=== PATIENT | female | born 1975 | race Caucasian/White ===

== ENCOUNTER 2021-11-10 01:56 | Inpatient (IN) | payer SELFPAY ==
[2021-11-10] VITALS (45 sets, daily range): BP systolic 124–190; BP diastolic 72–108; PULSE 61–90; RESP 7–29; TEMP 36.6–37.1; O2SAT 91–98; BMI 24.0
--- NOTE | 2021-11-10 01:30 | XRR_ITS ---
[facility] Final Radiology Report Call: [phone] assistance Online chat: [email or web address] Name: ELSA NUNES Age: 67Years F Date: 11/10/2021 SSN: -- : 10/24/1954 Study: XR CHEST 1 VIEW Requesting Physician: ULYSSES RIVERA Images: 1 Add?l Studies: Provided Clinical History: cp PROCEDURE INFORMATION: Exam: XR Chest Exam date and time: 11/10/2021 1:29 AM Age: 67 years old Clinical indication: Shortness of breath; Chest pressure; Prior surgery; Surgery type: Coronary stent; Patient HX: Chest pain with nausea and SOB. History of cad. ; Additional info: Cp TECHNIQUE: Imaging protocol: XR of the chest. Views: 1 view. COMPARISON: CR Shoulder 2+ views LEFT* [id number] 08/05/2018 2:34 PM FINDINGS: Lungs: Unremarkable. No consolidation. Pleural spaces: Unremarkable. No pleural effusion. No pneumothorax. Heart/Mediastinum: Unremarkable. No cardiomegaly. Bones/joints: Unremarkable. IMPRESSION: No acute findings. Thank you for allowing us to participate in the care of your patient. Dictated and Authenticated by: Esequiel Talley DO 11/10/2021 1:56 AM Central Time ([place] & [place]) MTDD
--- NOTE | 2021-11-10 01:58 | ED_ITS ---
HPI - Chest Pain General: Chief Complaint: Chest Pain Stated Complaint: CP Time Seen by Provider: 11/10/21 01:58 Source: patient and EMS Mode of arrival: EMS Limitations: no limitations History of Present Illness: 46-year-old female with a history of coronary disease had stents placed roughly 3 years ago states that she was setting down tonight at 11 PM started having chest pain that was substernal with some diaphoresis and dyspnea patient was given nitro and aspirin and is currently pain-free patient came in by [facility] helicopter and they called STEMI in route. Reviewing the EKG she does have some ST depression but no signs of STEMI on initial EKG here shows no signs of ST elevation as well. She is completely pain-free here. Associated symptoms: Deny abdominal pain, dyspnea, fever(s), nausea or vomiting Review of Systems Const: Denies: fever(s), chills, body aches or change in appetite Eyes: Denies: blurry vision or eye discomfort ENMT: Denies: throat pain or dental pain Card: Reports: chest pain Resp: Denies: dyspnea GI: Denies: abdominal pain, nausea, vomiting or diarrhea : Denies: dysuria Musc: Denies: neck pain or back pain Skin/Breast: Denies: rash Neuro: Denies: headache(s) Psych: Denies: depression Harshad/Lymph: Denies: easy bruising All/Imm: Denies: urticaria PFSH ED PFSH: Medical History CAD (coronary artery disease) Social History (Updated 11/10/21 @ 01:59 by Edna Lund MD) Smoking and tobacco status: current every day smoker Physical Exam Const: COMMON NORMALS: no acute distress, patient oriented x3 and healthy appearing HENMT: COMMON NORMALS: normocephalic and atraumatic HEAD & SCALP: normocephalic and atraumatic Eye: COMMON NORMALS: Equal, round and reactive pupils present and EOMs intact bilaterally PUPIL: Yes Equal, round and reactive pupils present Neck/C-Spine: COMMON NORMALS: full ROM and supple Chest: COMMONS NORMALS: normal inspection of the chest and normal palpation of entire chest wall Resp: COMMON NORMALS: normal respiratory effort, No retractions, No use of accessory muscles and clear to auscultation bilaterally AUSCULTATION: clear to auscultation bilaterally Cardio: COMMON NORMALS: regular rate, regular rhythm and No murmurs present (Cardio) RATE: regular rate RHYTHM: regular rhythm GI: COMMON NORMALS: Normal to inspection, nondistended, normoactive bowel sounds present, Soft to palpation, non-tender and no masses PALPATION: Yes Soft to palpation Extremity: COMMON NORMALS: normal to inspection and full ROM Neuro: COMMON NORMALS: patient oriented x3, moves all extremities and no focal motor deficits Psych: COMMON NORMALS: mental status grossly normal, Normal thought process present and cooperative THOUGHT PROCESS: Normal thought process present Skin: COMMON NORMALS: no rashes or lesions noted and no wounds GENERAL SKIN EXAM: no rashes or lesions noted Course Vital Signs: Vital signs: Vital Signs Temperature 98.1 F 11/10/21 02:19 Pulse Rate 70 11/10/21 02:37 Respiratory Rate 21 H 11/10/21 02:37 Blood Pressure 156/84 11/10/21 02:37 Pulse Oximetry 95 11/10/21 02:37 MDM - Chest Pain Medical Decision Making Patient presents for chest pain patient was seen here by the gymnastic coach EKG he re showed no signs of ST elevation and STEMI was called off patient is given Lovenox first troponin is normal speaking to gymnastic coach will admit at this time though for likely cath. Lab Data : 11/10/21 00:45 11/10/21 00:45 Laboratory Results WBC 11.4 10^3/uL (4.0-10.0) H 11/10/21 00:45 RBC 4.62 10^6/uL (4.1-5.3) 11/10/21 00:45 Hgb 12.1 g/dL (11.5-15.3) 11/10/21 00:45 Hct 39.4 % (37.0-47.0) 11/10/21 00:45 MCV 85.3 fl (81-99) 11/10/21 00:45 MCH 26.2 pg (28.0-34.0) L 11/10/21 00:45 MCHC 30.7 g/dL (30.0-36.0) 11/10/21 00:45 RDW 14.8 % (12.1-15.1) 11/10/21 00:45 Plt Count 220 10^3/cmm (130-400) 11/10/21 00:45 MPV 10.4 fL (7.4-10.4) 11/10/21 00:45 Neut % (Auto) 55.4 % 11/10/21 00:45 Lymph % (Auto) 36.9 % 11/10/21 00:45 [place] % (Auto) 5.5 % 11/10/21 00:45 Eos % (Auto) 1.5 % 11/10/21 00:45 Baso % (Auto) 0.5 % 11/10/21 00:45 Neut # (Auto) 6.29 10^3/uL (1.8-7.7) 11/10/21 00:45 Lymph # (Auto) 4.2 10^3/uL (0.8-4.8) 11/10/21 00:45 [place] # (Auto) 0.6 10^3/uL (0.2-0.9) 11/10/21 00:45 Eos # (Auto) 0.2 10^3/uL (0.0-0.8) 11/10/21 00:45 Baso # (Auto) 0.1 10^3/uL (0.0-0.1) 11/10/21 00:45 Nucleated RBC % (auto) 0 % 11/10/21 00:45 Nucleated RBCs # 0.0 /100WBC 11/10/21 00:45 Sodium 139 mmol/L (136-145) 11/10/21 00:45 Potassium 3.9 mmol/L (3.5-5.1) 11/10/21 00:45 Chloride 100 mmol/L (98-107) 11/10/21 00:45 Carbon Dioxide 23 mmol/L (22-29) 11/10/21 00:45 Anion Gap 19.9 (5-19) H 11/10/21 00:45 BUN 9 mg/dL (6-20) 11/10/21 00:45 Creatinine 0.7 mg/dL (0.5-0.9) 11/10/21 00:45 GFR Calculation 90.1 mL/min (90-130) 11/10/21 00:45 Glucose 117 mg/dL (65-115) H 11/10/21 00:45 Calculated Osmolality 288 mOsm/kg (285-295) 11/10/21 00:45 Calcium 9.6 mg/dL (8.5-10.5) 11/10/21 00:45 Total Bilirubin 0.2 mg/dL (0.15-1.2) 11/10/21 00:45 AST 14 U/L (0-32) 11/10/21 00:45 ALT 7 U/L (0-33) 11/10/21 00:45 Alkaline Phosphatase 44 IU/L (35-105) 11/10/21 00:45 Troponin T Baseline 10 ng/L (0-10) 11/10/21 00:45 Total Protein 7.1 g/dL (6.6-8.7) 11/10/21 00:45 Albumin 4.6 g/dL (3.5-5.2) 11/10/21 00:45 Globulin 2.5 g/dL (1.3-4.6) 11/10/21 00:45 EKG Data EKG 1: I personally reviewed and interpreted this EKG as follows: EKG interpretation date: 11/10/21 EKG interpretation time: 00:33 Interpretation: nsr hr [address] or t wave abnormalities qrs 106 qtc 395 Discharge Plan Discharge Patient Disposition: Admitted As Inpatient Clinical Impression: Chest pain Coding Level of Care Code ED Prenatal Genetic Counselor for Fedeg Fwd Exam Comprehensive
--- NOTE | 2021-11-10 02:09 | ECG_ITS ---
[facility] Test Date: 2021-11-10 Pat Name: FESTUS ZAPIEN Department: Room: Gender: Female Order Department Supervisor: : 1975 Requested By: Edna Lund Order Number: [id number] Risa MD: Namrata Ozuna M.D. Measurements Intervals [place] Rate: 73 P: 65 VT: 174 QRS: 45 QRSD: 90 T: -34 QT: 410 QTc: 452 Interpretive Statements SINUS RHYTHM LEFT VENTRICULAR HYPERTROPHY AND ST-T CHANGE [VOLTAGE CRITERIA PLUS ST/T ABNORMALITY] INTERPRETATION BASED ON A DEFAULT AGE OF 40 YEARS No previous ECG available for comparison Electronically Signed On 11-11-2021 6:01:00 PRIVATE BRANCH EXCHANGE REPAIRER by Namrata Ozuna M.D. [id number]
[2021-11-10] MEDS: enoxaparin 80 mg/0.8 mL Syringe 70 MG SUBCUT (02:20)
[2021-11-10] MEDS: clopidogrel 300 mg Tablet 600 MG PO (02:22)
[2021-11-10 02:41] LABS: Alanine Aminotransferase 7 U/L (0-33); Albumin Level 4.6 g/dL (3.5-5.2); Alkaline Phosphatase 44 IU/L (35-105); Anion Gap 19.9 (5-19); Aspartate Amino Transferase 14 U/L (0-32); Blood Urea Nitrogen 9 mg/dL (6-20); Calcium 9.6 mg/dL (8.5-10.5); Carbon Dioxide 23 mmol/L (22-29); Chloride 100 mmol/L (98-107); Globulin 2.5 g/dL (1.3-4.6); Glomerular Filtration Rate 90.1 mL/min (90-130); Glucose 117 mg/dL (65-115); Osmolality Calculated 288 mOsm/kg (285-295); Potassium 3.9 mmol/L (3.5-5.1); Sodium 139 mmol/L (136-145); Total Bilirubin 0.2 mg/dL (0.15-1.2); Total Protein 7.1 g/dL (6.6-8.7); Troponin(5th) Baseline 10 ng/L (0-10)
[2021-11-10 02:43] LABS: Basophils # 0.1 10^3/uL (0.0-0.1); Basophils % 0.5 %; Eosinophils # 0.2 10^3/uL (0.0-0.8); Eosinophils % 1.5 %; Hematocrit 39.4 % (37.0-47.0); Hemoglobin 12.1 g/dL (11.5-15.3); Lymphocytes # 4.2 10^3/uL (0.8-4.8); Lymphocytes % 36.9 %; Mean Corpuscular HGB Conc 30.7 g/dL (30.0-36.0); Mean Corpuscular Hemoglobin 26.2 pg (28.0-34.0); Mean Corpuscular Volume 85.3 fl (81-99); Mean Platelet Volume 10.4 fL (7.4-10.4); Monocytes # 0.6 10^3/uL (0.2-0.9); Monocytes % 5.5 %; Neutrophils # 6.29 10^3/uL (1.8-7.7); Neutrophils % 55.4 %; Nucleated Red Blood Cells % 0 %; Platelet Count 220 10^3/cmm (130-400); Red Blood Count 4.62 10^6/uL (4.1-5.3); Red Cell Distribution Width 14.8 % (12.1-15.1); White Blood Count 11.4 10^3/uL (4.0-10.0)
--- NOTE | 2021-11-10 04:09 | ECG_ITS ---
[facility] Test Date: 2021-11-10 Pat Name: FESTUS ZAPIEN Department: Room: 108 Gender: Female Screw Machine Set Up Operator: : 1975 Requested By: Edna Lund Order Number: [id number] Risa MD: Namrata Ozuna M.D. Measurements Intervals [place] Rate: 65 P: 66 DC: 170 QRS: 63 QRSD: 85 T: 58 QT: 419 QTc: 438 Interpretive Statements SINUS RHYTHM POSSIBLE LEFT ATRIAL ENLARGEMENT [-0.1mV P-WAVE IN V1/V2] LEFT VENTRICULAR HYPERTROPHY AND ST-T CHANGE [VOLTAGE CRITERIA PLUS ST/T ABNORMALITY] Compared to ECG 11/10/2021 01:35:26 No significant changes Electronically Signed On 11-11-2021 6:08:27 LAP WINDER by Namrata Ozuna M.D. [id number]
--- NOTE | 2021-11-10 04:28 | PC.NURSE ---
Received Pt from ED to room 108. Pt A&O x4, Resp even and non-labored no distress noted. Pt had no c/o pain or discomfort at the present time. IV patent no redness or swelling noted. Pt had no c/o chest pain or SOB at the present time. No Needs voiced at the present time. Call light in reach. Will continue to monitor.
[2021-11-10] MEDS: nitroglycerin 1 gm/inch oint Pkt 1 INCH TOPICAL ×4 (05:05→22:22)
--- NOTE | 2021-11-10 05:10 | USCV_ITS ---
FESTUS ZAPIEN Age: 46 Gender: F : 1975 Exam Date: 11/10/2021 06:25 Ordering Phys: Jenelle Valdivia MD Technologist: ISIDORO [place] [facility] [place]stemi BP: 151 / 90 HR: 72 Rhythm: Sinus Technical Quality: Adequate MEASUREMENTS (Male / Female) Normal Values 2D ECHO LV Diastolic Diameter PLAX 4.4 cm 4.2 - 5.9 / 3.9 - 5.3 cm LV Systolic Diameter PLAX 2.7 cm IVS Diastolic Thickness 1.7 cm 0.6 - 1.0 / 0.6 - 0.9 cm IVS Systolic Thickness 2.3 cm LVPW Diastolic Thickness 1.4 cm 0.6 - 1.0 / 0.6 - 0.9 cm LVPW Systolic Thickness 1.7 cm LVOT Diameter 2.0 cm LV Ejection Fraction 2D Teich 67.6 % LV Ejection Fraction MOD 2C 55.0 % LV Ejection Fraction 2C AL 56.6 % LA Diameter 3.0 cm LA Width 3.1 cm LA Height 3.9 cm RA Width 3.3 cm RA Height 3.7 cm Aorta at Sinotubular Diameter 1.6 cm M-MODE Aortic Annulus Diameter 2.2 cm LA Ao Ratio MM 1.3 MV E Point Septal Separation 0.4 cm DOPPLER AV Peak Velocity 138.7 cm/s LVOT Peak Velocity 81.0 cm/s AV Area Cont Eq vti 1.9 cm squared AV Area Cont Eq pk 1.9 cm squared MV Peak Velocity 100.0 cm/s MV Area PHT 3.0 cm squared Mitral E to A Ratio 0.8 MV E' Velocity 51.5 cm/s Mitral E to MV E' Ratio 9.8 Mitral E to LV E' Lateral Ratio 9.8 Mitral E to LV E' Septal Ratio 9.8 TR Peak Velocity 146.9 cm/s TR Peak Gradient 8.6 mmHg TR Mean Velocity 143.4 cm/s TR Mean Gradient 9.5 mmHg TR Velocity Time Integral 50.2 cm Right Atrial Pressure 3.0 mmHg Pulmonary Artery Systolic Pressu 11.6 mmHg PV Peak Velocity 98.0 cm/s RV Acceleration Time 0.1 s RV Ejection Time 0.3 s RV AcT/ET 0.4 FINDINGS Left Ventricle Normal left ventricular size. LV systolic function is normal with EF 55 to 60%. No regional wall motion abnormalities are seen. Grade 1 diastolic dysfunction. Right Ventricle The right ventricle is normal in size and function. Right Atrium The right atrium is normal in size. Left Atrium The left atrium is normal in size. Mitral Valve Structurally normal mitral valve without significant stenosis or prolapse. There is trace mitral regurgitation. Aortic Valve Structurally normal aortic valve without significant sclerosis or stenosis. There is no aortic regurgitation. Tricuspid Valve Structurally normal tricuspid valve without significant stenosis or regurgitation. Insufficient TR jet to calculate RVSP. Pulmonic Valve Structurally normal pulmonic valve without significant stenosis. There is no pulmonic regurgitation. Pericardium Normal pericardium without effusion. Aorta Normal ascending aorta dimension. CONCLUSIONS LV systolic function is normal with EF 55 to 60%. Grade 1 diastolic dysfunction. Trace mitral regurgitation. No comparison studies are available. Galdino Carreno MD (Electronically Signed) Final Date: 10 November 2021 11:44 S
--- NOTE | 2021-11-10 05:15 | XR_ITS ---
WS: [id number] Portable AP upright chest, 11/10/2021, 0526 hours Clinical Data: chest pain Comparison: Portable chest, 11/10/2021, 0139 hours. Findings: No nodules, masses or effusions are seen. The heart is normal. The pulmonary vascularity is not increased. No pneumonia or pneumothorax is seen. Monitor leads are on the chest wall. XR/XR chest 1V portable [id number] Impression: Negative chest.
--- NOTE | 2021-11-10 05:16 | PM.HP ---
Providers/Chief Complaint Admitting Physician: Jenelle Valdivia MD Chief Complaint: CP History of Present Illness FESTUS ZAPIEN is a 46 year old female with a past medical history of coronary artery disease who was brought into the ER initially as a STEMI code after presenting with chest pain that started at 11 PM overnight. Chest pain was described as 9 out of 10, substernal, associated with diaphoresis and dyspnea, which was improved with sublingual nitro and aspirin. She was evaluated by cardiology upon ER arrival, she did not have a STEMI, some ST-T wave depression was changed in leads II and aVF. Her baseline troponin is at 10. Due to ongoing chest pain in a patient with cardiac risk factors and EKG changes she is planned to go to [facility] in the morning. Review of Systems General: Reports: 10 or more systems reviewed and unremarkable except in HPI and below Const: Denies: fever(s), chills or body aches Eyes: Denies: change in vision, blurry vision or photophobia ENMT: Reports: hoarseness; Denies: throat pain, enlarged tonsils, odynophagia or nasal congestion Card: Denies: chest pain, palpitations, irregular heart rhythm, edema, swelling of feet/ankles, lightheadedness, pre-syncope, dyspnea on exertion or orthopnea Resp: Denies: dyspnea, productive cough, non-productive cough, wheezing, stridor, pain on inspiration, change in phlegm color, hemoptysis or chest congestion GI: Denies: abdominal pain, nausea, vomiting, hematemesis, coffee ground emesis, dysphagia, heartburn, diarrhea, constipation, GI cramping, change in stool character, hematochezia or melena : Denies: flank pain, difficulty voiding, dysuria, urinary frequency, urinary urgency, urinary hesitancy or hematuria Musc: Denies: neck pain, back pain, extremity pain, joint swelling, joint warmth or deformity Neuro: Denies: headache(s), numbness in extremities, weakness in extremities, sensory changes, difficulty walking, frequent falls, dizziness, vertigo, behavioral changes, Slurred speech present or seizure-like activity Psych: Denies: anxiety, depression, suicidal ideation or homicidal ideation Endo: Denies: polyuria, polydipsia, tired all the time, cold intolerance or hot flashes Harshad/Lymph: Denies: easy bruising or easy bleeding Medications/Allergies Allergies Allergy/AdvReac Type Severity Reaction Status Date / Time No Known Allergies Allergy Verified 11/10/21 02:23 PFSH Acute PFSH: Medical History CAD (coronary artery disease) Social History Smoking and tobacco status: current every day smoker Vitals/I&O/Wt Last Vital Signs Temp 98.1 F 11/10/21 02:19 Pulse 70 11/10/21 03:21 Resp 23 H 11/10/21 03:21 BP 156/87 11/10/21 03:21 Pulse Ox 94 11/10/21 03:21 Weight last 48 hrs Weight 63.503 kg Physical Exam Const: COMMON NORMALS: no acute distress, average body habitus, patient oriented x3, no limitations, healthy appearing, alert and well nourished HENMT: COMMON NORMALS: normocephalic and atraumatic HEAD & SCALP: normocephalic and atraumatic Eye: COMMON NORMALS: Equal, round and reactive pupils present, EOMs intact bilaterally, conjunctivae normal and no scleral icterus CONJUNCTIVA: Yes conjunctivae normal PUPIL: Yes Equal, round and reactive pupils present Neck/C-Spine: COMMON NORMALS: no JVD Resp: COMMON NORMALS: normal respiratory effort, No retractions, No use of accessory muscles, clear to auscultation bilaterally and percussion normal AUSCULTATION: clear to auscultation bilaterally PERCUSSION: percussion normal Cardio: COMMON NORMALS: no JVD, regular rate, regular rhythm, S1 normal heart sound present, S2 normal heart sound present, No gallops present (Cardio), No clicks present (Cardio), No murmurs present (Cardio), No rub (Cardio) and Peripheral pulses 2+ throughout RATE: regular rate RHYTHM: regular rhythm HEART SOUNDS: S1 normal heart sound present and S2 normal heart sound present PERIPHERAL PULSES: Peripheral pulses 2+ throughout GI: COMMON NORMALS: Normal to inspection, nondistended, normoactive bowel sounds present, Soft to palpation, non-tender, No hepatosplenomegaly present, no masses and no bruits PALPATION: Yes Soft to palpation and Yes No hepatosplenomegaly present Extremity: COMMON NORMALS: normal to inspection, full ROM, capillary refill normal, no joint enlargement, no clubbing, cyanosis or edema, no calf tenderness and no pedal edema Neuro: COMMON NORMALS: patient oriented x3, CN's II-XII intact bilaterally, moves all extremities, no focal motor deficits, no sensory deficits noted, deep tendon reflexes 2+ bilaterally and gait normal SENSORIUM/ORIENTATION: Yes alert Psych: COMMON NORMALS: mental status grossly normal, Normal thought process present, cooperative, normal affect, speech normal, activity/motor behavior normal, denies hallucinations, denies homicidal ideation and denies suicidal ideation SPEECH: Yes normal speech THOUGHT PROCESS: Normal thought process present Skin: COMMON NORMALS: no rashes or lesions noted, no wounds, turgor normal, no jaundice, no petechiae and no mottling GENERAL SKIN EXAM: no rashes or lesions noted and turgor normal Data : 11/10/21 00:45 11/10/21 00:45 A&P Assessment and plan (1) Chest pain: Patient with cardiac risk factors, past history of coronary artery disease, presenting today with chest pain, some noted ST depression however normal baseline troponin thus far. Due to multiple risk factors and ongoing chest pain, she was evaluated by cardiology in the ER. Initially a STEMI had been called by EMS, however upon cardiology review STEMI was ruled out. She is planned for a Dental Appliance [facility]ic evaluation in the morning. N.p.o. for intervention. Start aspirin 81 mg p.o. daily, atorvastatin 40 mg p.o. daily, Lovenox 1 mg/kg every 12 hours. She has received aspirin 325 and clopidogrel 600 mg and sublingual nitro in route. Morphine as needed for pain control. Nitropatch 1 inch topically every 6 hours Chest x-ray, screening D-dimer. Saturating 94% on room air currently. Echocardiogram Status: Acute (2) CAD (coronary artery disease): Status: Acute Attestations Medical Necessity Statement*: Anticipate >2midnight admission for management of management of possible NSTEMI, ongoing chest pain, cardiac catheterization Coding Level of Care Code Acute Biochemistry Professor for [facility] Diagnoses Chest pain R07.9 CAD (coronary artery disease) I25.10
[2021-11-10 05:36] LABS: D Dimer 0.92 ug/mIFEU (0-0.59)
[2021-11-10 05:51] LABS: Troponin 5 2HR 68.95 ng/L (0-10)
[2021-11-10 05:56] LABS: Troponin 5 2HR Delta 58.95 ABS# (0-10)
--- NOTE | 2021-11-10 06:18 | P.CONIM_ITS ---
Providers/Reason For Consult Consulting Physician/Specialty*: Galdino Carreno MD/Cardiology Reason for Consult*: NSTEMI Requesting Physician: Dr Lund Attending Physician: Jenelle Valdivia MD History of Present Illness History of Present Illness FESTUS ZAPIEN is a 46 year old female with past medical history of coronary artery disease with prior stent, smoking, hypertension was brought to the ER with STEMI activation. According to patient she started noticing chest pain at 11 PM last night. Was severe, substernal and was associated with diaphoresis and nausea. Once EMS arrived, she was given nitro and aspirin. That relieved the pain. In the ER EKG did not show STEMI and ischemic changes were noted in inferior leads poor. Initial troponin was done and at 2 hours trended up to 68. He was loaded with aspirin and Plavix. Put on Lovenox. Review of Systems General: Reports: 10 or more systems reviewed and unremarkable except in HPI and below Const: Denies: fever(s), chills or body aches Eyes: Denies: change in vision, blurry vision or photophobia ENMT: Reports: hoarseness; Denies: throat pain, enlarged tonsils, odynophagia or nasal congestion Card: Denies: chest pain, palpitations, irregular heart rhythm, edema, swelling of feet/ankles, lightheadedness, pre-syncope, dyspnea on exertion or orthopnea Resp: Denies: dyspnea, productive cough, non-productive cough, wheezing, stridor, pain on inspiration, change in phlegm color, hemoptysis or chest congestion GI: Denies: abdominal pain, nausea, vomiting, hematemesis, coffee ground emesis, dysphagia, heartburn, diarrhea, constipation, GI cramping, change in stool character, hematochezia or melena : Denies: flank pain, difficulty voiding, dysuria, urinary frequency, urinary urgency, urinary hesitancy or hematuria Musc: Denies: neck pain, back pain, extremity pain, joint swelling, joint w armth or deformity Neuro: Denies: headache(s), numbness in extremities, weakness in extremities, sensory changes, difficulty walking, frequent falls, dizziness, vertigo, behavioral changes, Slurred speech present or seizure-like activity Psych: Denies: anxiety, depression, suicidal ideation or homicidal ideation Endo: Denies: polyuria, polydipsia, tired all the time, cold intolerance or hot flashes Harshad/Lymph: Denies: easy bruising or easy bleeding Medications/Allergies Allergies Allergy/AdvReac Type Severity Reaction Status Date / Time No Known Allergies Allergy Verified 11/10/21 02:23 Current Medications Generic Name Dose Route Start Last Admin Trade Name Freq PRN Reason Stop Dose Admin Nitroglycerin 1 inch 11/10/21 05:00 11/10/21 05:05 Nitroglycerin 1 Gm/Inch Oint Pkt TOPICAL 1 inch Q6H NASRIN Administration PFSH Acute PFSH: Medical History CAD (coronary artery disease) Social History Smoking and tobacco status: current every day smoker Vitals/I&O/Wt Last Vital Signs Temp 98.1 F 11/10/21 05:10 Pulse 71 11/10/21 05:30 Resp 24 H 11/10/21 05:30 BP 166/99 11/10/21 05:30 Pulse Ox 94 11/10/21 05:30 11/09/21 11/09/21 11/10/21 14:59 22:59 06:59 Intake Total 0 / 0 Balance 0 / 0 Weight last 48 hrs Weight 140 lb Physical Exam Narrative: GENERAL: Patient is alert, awake and oriented x3. [] NECK: No jugular vein distension. [] HEENT: No cyanosis. No icterus. No pallor. [] HEART: Regular S1 and S2. No murmur, rub or gallop. [] LUNGS: Clear to auscultate bilaterally. [] ABDOMEN: Soft, nontender and nondistended. Positive bowel sounds. No guarding, rebound or tenderness. [] CENTRAL NERVOUS SYSTEM: Grossly nonfocal. [] EXTREMITIES: Lower extremities with 1+ edema bilaterally. Pulses palpable in the lower extremities, both dorsalis pedis and posterior tibial. [] Data : 11/10/21 00:45 11/10/21 00:45 A&P Assessment and plan (1) Non-ST elevation MO (NSTEMI): Status: Acute (2) CAD (coronary artery disease): Status: Acute (3) Hypertension: Status: Acute (4) Tobacco abuse: Status: Acute Plan Patient has presented with non-ST elevation MO. She has been loaded with aspirin and Plavix. Continue Lovenox. Order echocardiogram. Beta-sushil therapy. If patient starts having chest pain again, will start nitro drip. She is pain-free at this time. Patient is planned to undergo coronary angiogram in the morning. Risks and benefits of the procedure have been discussed with the patient. Thank you for involving us with care of this patient. Please call with questions. Coding Level of Care Code Acute Trailer Sections Assembler for [facility] Diagnoses Non-ST elevation MO (NSTEMI) I21.4 CAD (coronary artery disease) I25.10 Hypertension I10 Tobacco abuse Z72.0
--- NOTE | 2021-11-10 07:07 | XACV_ITS ---
Exam Room: [facility] Ht: 163 cm Wt: 64 kg BSA: 1.70 m2 Gender: Female : 1975 Any Known Allergies: No known allergies Exam Priority: Routine Procedure(s): Procedure Description: Diagnostic procedure Procedure Description: PCI procedure Procedure Description: Coronary IVUS Procedure Description: PTCA Procedure Description: Coronary Angiography Diagnostic Cath Status: Urgent Diagnostic Findings * Left Main has no disease. * Left Anterior Descending has no disease. * Right Coronary Artery has no disease. * Proximal Circumflex: mild 40% stenosis, YARELIS: 3 flow. * 1st Diagonal: severe 90% stenosis, YARELIS: 3 flow. * Coronary angiography shows right dominance. PCI Status: Urgent PCI Indication: NSTE - ACS Interventional Findings * PROCEDURE DETAIL: We engaged left main artery with XB 3.0 guide catheter. 0.014 run-through guidewire was used to cross the diagonal lesion. It was dilated with 2.25 x 8 mm noncompliant balloon. There was improvement in flow. We did not place a stent given the size of the vessel. As proximal left circumflex artery was showing some haziness, we decided to perform IVUS to confirm there was no plaque rupture or erosion. IVUS did not demonstrate any plaque rupture. At this time we removed the guide cath wire and guide catheter. Patient left the Ophthalmic Nurse in a stable condition. * 1st Diagonal: 90% stenosis treated with a AB TREK 2.25X8 RX BALLOON. 30% residual stenosis, YARELIS: 3 flow. Conclusions 1. Severe ostial diagonal artery stenosis status post revascularization with balloon angioplasty. 2. IVUS of left circumflex artery performed. No plaque rupture or erosion seen. 3. 1st Diagonal was treated with a Balloon. Recommendations * Continue aspirin and Plavix for at least 1 year. * High intensity statin therapy. * Beta-blockers. * Outpatient cardiology follow-up in 4 weeks. Interventional RX Recommendation: PCI w/o planned CABG Diagnostic RX Recommendation: PCI w/o planned CABG Anticoagulation: Heparin Pressures Phase:Rest AO : 148 / 110 ( 129 ) @ 9:26:00 AM 139 / 105 ( 122 ) @ 9:27:00 AM 134 / 102 ( 119 ) @ 9:28:00 AM 142 / 109 ( 127 ) @ 9:32:00 AM 202 / 112 ( 148 ) @ 9:38:00 AM 160 / 99 ( 126 ) @ 9:42:00 AM 140 / 97 ( 118 ) @ 9:46:00 AM 146 / 95 ( 119 ) @ 9:48:00 AM 162 / 100 ( 128 ) @ 9:50:00 AM 152 / 89 ( 115 ) @ 9:54:00 AM Clinical Evaluation EBL: 5mL-10mL Procedural Details Procedure Consent Obtained. Pre-Procedure Time Out. Identified patient by full name and date of as verbalized by the patient/guarantor. Does the consent match the physician's order: Yes. Accurate & Complete Informed Consent: Yes. Inpatient/Outpatient History & Physical on Chart: Yes. If H&P is completed, is and addenduem needed: No; If yes, is the addendum complete: N/A. Visualize and Verify Site with Patient/Guarantor: N/A. Relevant Radiology Images available: Yes. Pre-op teaching completed and patient verbalized understanding. The risks, benefits, and alternatives of sedation and/or procedure were discussed by physician. The patient agrees to continue. Procedure started. [facility] Clinical Fraility Score: 3: Managing Well. Ophthalmic Nurse Indications: ACS > 24 hours. Chest Pain Symptom Assessment: Typical Angina Symptoms. Correct patient, site and procedure confirmed by cath team. Current diagnosis: NSTEMI. Current Diagnosis : NSTEMI. IV Site on Arrival: 20 gauge in the left anticubital. IV Fluids: 0.9% NaCl at KVO. 0 mL infused prior to laboratory scientist. Oxygen started at 2liters/min via nasal canula. right groin was prepped with chloroprep then draped in the usual sterile fashion. right radial was prepped with chloroprep then draped in the usual sterile fashion. Physician notified. Baseline sample Acquired. HR: 67 BPM. Physician arrived. Physician scrubbed in. Immediate Pre-Procedure Time Out. Correct Patient: Yes; Correct Procedure: Yes; Correct Site: Yes; Correct Patient Position: Yes; Correct Supplies: Yes; Dried Flammable Prep: Yes; Blood Products Available: N/A;. Lidocaine 1% infiltrated to the right radial. Arterial access obtained. A 5 palauan TIG catheter in over wire. Multiple views taken of left coronary artery. Catheter removed over the standard wire. A 5 palauan JR4 catheter in over wire. Multiple views taken of right coronary artery. Physician review of cine films. Catheter removed over the standard wire. 6 palauan XB 3 guide catheter was inserted over the wire. Runthrough guidewire was advanced through the guide catheter to lesion in the diaganol. Inflation number : 1 A AB TREK 2.25X8 RX BALLOON was prepped and advanced across the 1st Diag , then inflated to 12 DANK for 0:15 seconds. Inflation number: 2 The AB TREK 2.25X8 RX BALLOON was reinflated across the 1st Diag, to 12 DANK for 0:14 seconds. Inflation number: 3 The AB TREK 2.25X8 RX BALLOON was reinflated across the 1st Diag, to 10 DANK for 0:18 seconds. Results checked. Balloon out. Runthrough repositioned to prox Circ. IVUS catheter inserted OTW. IVUS measurements obtained. IVUS catheter and wire out. Results checked. Guide catheter out. TR band placed. Hemostasis obtained. Post Procedure: Pulses reassessed and unchanged. PERRLA. Strong, equal hand employment appeals examiner bilaterally. No VTE prophylaxis required. Medication's Wasted: Nitro = 49.8 mg. Medication's Wasted: Lidocaine 1% = 18 mL. Medication's Wasted: Heparin = 1000 units. Total IV fluids: 137 mL. Contrast type used: Visipaque 320 mgI/mL, 500 mL bottle. Vital chart was stopped. Complications: None. Estimated blood loss: 5mL-10mL. Responsiveness - Normal response to verbal stimuli; alert and oriented, PERRLA. Airway - Unaffected, no intervention required; spontaneous ventilation. Circulation: W/N/L, pulses unchanged. Nausea/Vomiting: No. Procedure completed. Patient transferred by wheelchair to 1st floor. A TR Band was successful obtaining hemostatsis at the Right Radial artery insertion site. Access Site Site: Right Radial artery Sheath Size: 6 Fr Hemostasis Method: TR Band Hemostasis Success: Successful Procedure Medications Start: 8:18 AM Stop: 8:18 AM Medication: Versed Amount: 1 mg Route: I.V. Start: 8:19 AM Stop: 8:19 AM Medication: Fentanyl Amount: 50 mcg Route: I.V. Start: 8:21 AM Stop: 8:21 AM Medication: Versed Amount: 1 mg Route: I.V. Start: 8:23 AM Stop: 8:23 AM Medication: Nitrogylcerin Amount: 200 mcg Route: I.A. Start: 8:23 AM Stop: 8:23 AM Medication: Fentanyl Amount: 25 mcg Route: I.V. Start: 8:23 AM Stop: 8:23 AM Medication: Fentanyl Amount: 25 mcg Route: I.V. Start: 8:40 AM Stop: 8:40 AM Medication: Versed Amount: 1 mg Route: I.V. I, the attending physician, have reviewed and verified all procedure medications. Yes, all medications given per verbal order History/Risk Factors Dyslipidemia: No Peripheral Arterial Disease (PAD): No Myocardial Infarction (MS): No Obesity: No Renal Disease: No Tobacco Use: Current/Recent(w/in 1 year) Prior Interventions PCI: Yes CABG: No Valve Surgery: No Report Signatures Finalized by Galdino Carreno MD on 11/25/2021 06:00 PM
--- NOTE | 2021-11-10 08:08 | W.PM.OPSUD ---
Surgery/Procedure H&P Update DATE OF PROCEDURE: November 10, 2021 DATE H&P PERFORMED: 11/10/21 H&P UPDATE INFORMATION: I have reviewed H&P completed within last 30 days, I have examined patient prior to procedure and No changes to prior documentation PREOP DIAGNOSIS: NSTEMI PRIMARY INDICATION FOR PROCEDURE: NSTEMI PLANNED PROCEDURE: Left heart cath with possible percutaneous coronary intervention PATIENT REASSESSED PRIOR TO SEDATION, WITH NO CHANGE NOTED: Yes PHYSICAL EXAM: alert, oriented x 3, clear to auscultation bilaterally and regular rate & rhythm AIRWAY EVAL/ANESTHESIA PLAN: normal airway, ASA III, Monitored Anesthesia, Local Anesthesia, Risks, benefits & alternatives of sedation and/or procedure discussed and Patient agrees to continue as planned
--- NOTE | 2021-11-10 08:09 | ECG_ITS ---
[facility] Test Date: 2021-11-10 Pat Name: FESTUS ZAPIEN Department: Room: 108 Gender: Female Transcription Coordinator: : 1975 Requested By: Edna Lund Order Number: [id number] Risa MD: Namrata Ozuna M.D. Measurements Intervals [place] Rate: 69 P: 33 NH: 168 QRS: 46 QRSD: 82 T: 41 QT: 422 QTc: 455 Interpretive Statements SINUS RHYTHM VOLTAGE CRITERIA FOR LVH [MEETS CRITERIA IN ONE OF: R(aVL), S(V1), R(V5), R(V5/V6)+S(V1)] MODERATE ST DEPRESSION [0.05+ mV ST DEPRESSION] Compared to ECG 11/10/2021 05:05:06 No significant changes Electronically Signed On 11-11-2021 6:08:05 FIELD TECHNICAL SPECIALIST by Namrata Ozuna M.D. [id number]
--- NOTE | 2021-11-10 09:16 | PC.NURSE ---
Reported trop delta 65.[address] Carreno. Pt in stucco laborer.
[2021-11-10] MEDS: pantoprazole DR 40 mg Tablet PO (09:38)
[2021-11-10] MEDS: aspirin 81 mg EC Tablet PO (09:38)
--- NOTE | 2021-11-10 10:16 | PC.CHAP ---
Pastoral Care Encounter/Spiritual Assessment Type of Contact [] Declined industrial order clerk visit [] Patient/Family/Request visit [] Outpatient visit [] Follow-up visit [] Physician referral [] Code/Alert [x] Routine visit [] Staff referral [] Actively dying [] Patient sleeping [] Family support [] [] Out of room [] Palliative care [] [x] Receiving care in room [] Pre-surgical visit [] Trauma [] Long length of stay [] ICU visit [] Other: Relational/Emotional Strength [x] Patient feels connected with others/family/visitors/staff [] Distress [] Loneliness/isolation [] Abandonment Spirituality of Patient [x] Person of Deb [] Attends Roman Catholic of their Deb [x] Believes in Prayer [] Reads Bible or Taoist materials [] There are Spiritual issues to be addressed Test Technician Interventions [x] Prayer [x] Active listening [x] Non-anxious presence [x] Spiritual/emotional support [] Crisis/trauma care [x] Spiritual counseling [] Bereavement support [] Provided bereavement packet [] Provided Bible/devotional materials [] Provided toy/stuffed animal, coloring book to patient or family member [] Provided Communion [] Anointing/Cisco [] Salvation [x] Completed spiritual assessment [] Other: Impact on Illness or Injury [] Angry [] Fearful [] Anxious [] Often cries [] Exhaustion [] Unable to work [] Unable to attend hoahaoism [] Unable to walk/stand [] Unable to read [] Unable to drive [] Unable to eat/drink [] Unable to sleep [] Unable to be with family [] Patient intubated [] Other: Summary had a cath tests has agood attitude is going home Time spent with patient 10 mins
--- NOTE | 2021-11-10 10:43 | P.PN_ITS ---
Subjective Subjective: Patient was seen this morning, she is status post her balloon angioplasty, she is feeling better, she did have episodes of sinus bradycardia overnight, having episodes of sinus bradycardia this morning, is asymptomatic, she does tell me that she smokes Vitals/I&O/Wt Last Vital Signs Temp 98.8 F 11/10/21 07:14 Pulse 73 11/10/21 07:14 Resp 22 H 11/10/21 07:14 BP 151/80 11/10/21 07:14 Pulse Ox 98 11/10/21 07:14 11/09/21 11/10/21 11/10/21 22:59 06:59 14:59 Intake Total 0 / 0 Balance 0 / 0 Weight last 48 hrs Weight 63.503 kg Physical Exam Const: COMMON NORMALS: no acute distress and patient oriented x3 Resp: COMMON NORMALS: normal respiratory effort, No retractions, No use of accessory muscles and clear to auscultation bilaterally AUSCULTATION: clear to auscultation bilaterally Cardio: COMMON NORMALS: regular rate, regular rhythm, S1 normal heart sound present and S2 normal heart sound present RATE: regular rate RHYTHM: regular rhythm HEART SOUNDS: S1 normal heart sound present and S2 normal heart sound present GI: COMMON NORMALS: Normal to inspection, nondistended, normoactive bowel sounds present, Soft to palpation, non-tender and No hepatosplenomegaly present PALPATION: Yes Soft to palpation and Yes No hepatosplenomegaly present Extremity: COMMON NORMALS: no pedal edema Neuro: COMMON NORMALS: patient oriented x3 Psych: COMMON NORMALS: mental status grossly normal Data : 11/10/21 00:45 11/10/21 00:45 A&P Assessment and plan (1) Tobacco abuse: Status: Acute (2) Hypertension: Status: Acute (3) Non-ST elevation CT (NSTEMI): Status: Acute (4) Chest pain: Status: Acute (5) CAD (coronary artery disease): Status: Acute Plan NSTEMI -6-hour troponin 75.9, delta 65.9 -EKG showing ST depressions -Status post balloon angioplasty, no stenting required -We will check A1c, lipid panel -Aspirin, statin, received Plavix load, received Lovenox load Sinus bradycardia, continue to monitor Smoking, advised to quit smoking Hypertension Attestations Medical Necessity Statement*: Patient requires hospitalization for NSTEMI Coding Level of Care Code Acute Process Control Operator for g Fwd Diagnoses Tobacco abuse Z72.0 Hypertension I10 Non-ST elevation CT (NSTEMI) I21.4 Chest pain R07.9 CAD (coronary artery disease) I25.10
--- NOTE | 2021-11-10 11:10 | PC.PHAR ---
pt states she takes care of her own medications- pt states she had a build up of her medication-pts pharmacy states the pt has refills on all the meds entered
--- NOTE | 2021-11-10 12:43 | PC.NURSE ---
Notified Dr. Carreno of increased BP, new orders received.
[2021-11-10] MEDS: amlodipine 10 mg Tablet PO (12:55)
[2021-11-10] MEDS: atorvastatin 40 mg Tablet PO (21:11)
[2021-11-11] MEDS: nitroglycerin 1 gm/inch oint Pkt 1 INCH TOPICAL (04:15)
[2021-11-11 04:18] VITALS: BP 134/78; PULSE 85; RESP 20; TEMP 36.6; O2SAT 94
[2021-11-11 05:10] LABS: Basophils % 0.5 %; Eosinophils # 0.1 10^3/uL (0.0-0.8); Hematocrit 36.5 % (37.0-47.0); Hemoglobin 11.1 g/dL (11.5-15.3); Lymphocytes # 1.2 10^3/uL (0.8-4.8); Lymphocytes % 19.7 %; Mean Corpuscular HGB Conc 30.4 g/dL (30.0-36.0); Mean Corpuscular Volume 85.5 fl (81-99); Mean Platelet Volume 10.5 fL (7.4-10.4); Monocytes # 0.3 10^3/uL (0.2-0.9); Monocytes % 5.8 %; Neutrophils % 72.8 %; Nucleated Red Blood Cells % 0 %; Platelet Count 199 10^3/cmm (130-400); Red Blood Count 4.27 10^6/uL (4.1-5.3); Red Cell Distribution Width 14.8 % (12.1-15.1); White Blood Count 5.9 10^3/uL (4.0-10.0)
[2021-11-11 05:26] LABS: Estmated Average Glucose 94; Hemoglobin A1C 4.9 % (4.0-6.0)
[2021-11-11 05:29] LABS: Chol HDL Ratio 4.59 mg/dL (0.0-4.40); Cholesterol 179 mg/dL (0-200); HDL Cholesterol 39 mg/dL (60-100); LDL Cholesterol Calculated 118 mg/dL (50-129); LDL HDL Ratio 3.03 RATIO (0.00-3.22); Triglycerides 112 mg/dL (0-150)
[2021-11-11 05:33] LABS: Alanine Aminotransferase 6 U/L (0-33); Alkaline Phosphatase 39 IU/L (35-105); Anion Gap 13.8 (5-19); Aspartate Amino Transferase 12 U/L (0-32); Blood Urea Nitrogen 11 mg/dL (6-20); Carbon Dioxide 26 mmol/L (22-29); Chloride 102 mmol/L (98-107); Globulin 2.4 g/dL (1.3-4.6); Glomerular Filtration Rate 90.1 mL/min (90-130); Glucose 95 mg/dL (65-115); Osmolality Calculated 285 mOsm/kg (285-295); Potassium 3.8 mmol/L (3.5-5.1); Sodium 138 mmol/L (136-145); Total Bilirubin 0.2 mg/dL (0.15-1.2); Total Protein 6.4 g/dL (6.6-8.7)
[2021-11-11 05:42] VITALS: PULSE 76
--- NOTE | 2021-11-11 06:32 | PC.NURSE ---
pt rested quietly throughout the night. No complaints of pain. VSS. pt up to bathroom independently. Adequate UOP. Pt turned self frequently. Frequent rounding done. All needs met.
--- NOTE | 2021-11-11 07:32 | P.PN_ITS ---
Subjective Subjective: Patient is doing well. She denies chest pain. Coronary angiogram performed yesterday showed patent prior stent in left circumflex artery, she had severe proximal diagonal artery stenosis. This was treated with balloon angioplasty and stent was not put in as the size of the vessel was small to me dium sized. Vitals/I&O/Wt Last Vital Signs Temp 97.5 F L 11/11/21 07:24 Pulse 92 11/11/21 07:24 Resp 25 H 11/11/21 07:24 BP 126/78 11/11/21 07:24 Pulse Ox 98 11/11/21 07:24 11/10/21 11/11/21 11/11/21 22:59 06:59 14:59 Intake Total 660 / 1020 400 / 1420 Balance 660 / 1020 400 / 1420 Weight last 48 hrs Weight 140 lb Physical Exam Narrative: GENERAL: Patient is alert, awake and oriented x3. [] NECK: No jugular vein distension. [] HEENT: No cyanosis. No icterus. No pallor. [] HEART: Regular S1 and S2. No murmur, rub or gallop. [] LUNGS: Clear to auscultate bilaterally. [] ABDOMEN: Soft, nontender and nondistended. Positive bowel sounds. No guarding, rebound or tenderness. [] CENTRAL NERVOUS SYSTEM: Grossly nonfocal. [] EXTREMITIES: Lower extremities with 1+ edema bilaterally. Pulses palpable in the lower extremities, both dorsalis pedis and posterior tibial. [] Data : 11/11/21 04:26 11/11/21 04:26 A&P Assessment and plan (1) Non-ST elevation NC (NSTEMI): Status: Acute (2) CAD (coronary artery disease): Status: Acute (3) Hypertension: Status: Acute (4) Tobacco abuse: Status: Acute Plan Patient had presented with non-ST elevation NC and was found to have severe small to medium sized artery stenosis. She underwent balloon angioplasty. Stent was not placed because of size of vessel. Continue aspirin Plavix Beta-sushil therapy. Echocardiogram shows normal LV systolic function. Thank you for involving us with care of this patient. Please call with questions. Attestations Medical Necessity Statement*: Care expected to cross 2 midnights. Coding Level of Care Code Acute Historiography Professor for Dmitry Weir Diagnoses Non-ST elevation NC (NSTEMI) I21.4 CAD (coronary artery disease) I25.10 Hypertension I10 Tobacco abuse Z72.0
[2021-11-11 07:40] VITALS: BP 158/95; PULSE 81; RESP 19; TEMP 36.6; O2SAT 95
[2021-11-11] MEDS: amlodipine 10 mg Tablet PO (08:08)
[2021-11-11] MEDS: clopidogrel 75 mg Tablet PO (08:08)
[2021-11-11] MEDS: aspirin 81 mg EC Tablet PO (08:08)
[2021-11-11] MEDS: pantoprazole DR 40 mg Tablet PO (08:08)
--- NOTE | 2021-11-11 10:42 | P.DS_ITS ---
Discharge Providers Date of Admission: 11/10/21 02:50 Date of Discharge: November 11, 2021 Attending Provider at Admission: Jenelle Valdivia MD Attending Provider at Discharge: Shabbir Tafoya MD Diagnoses at Discharge Discharge Diagnosis (1) Non-ST elevation ME (NSTEMI): Status: Acute (2) CAD (coronary artery disease): Status: Acute (3) Hypertension: Status: Acute (4) Tobacco abuse: Status: Acute Reason for Visit Reason for Visit: CP Hospital Course Hospital Course This is a 46-year-old female with a past medical history of tobacco abuse, hypertension, CAD, presents to [facility] for chest pain. Patient was admitted to [facility] for chest pain, NSTEMI, underwent coronary angiogram which showed patent prior stent in left circumflex artery, severe proximal diagonal artery stenosis, this was treated with balloon angioplasty, stent was not put in due to size of the vessel, which was small to medium sized. Patient tolerated procedure well, no recurrent chest pain, discharged on aspirin, statin, Plavix, beta-sushil with close follow-up with primary care and cardiology as outpatient. Patient was advised to stop smoking. If she were to have recurrent chest pain go to emergency room. Physical Exam Const: COMMON NORMALS: no acute distress and patient oriented x3 Resp: COMMON NORMALS: normal respiratory effort, No retractions, No use of accessory muscles and clear to auscultation bilaterally AUSCULTATION: clear to auscultation bilaterally Cardio: COMMON NORMALS: regular rate, regular rhythm, S1 normal heart sound present and S2 normal heart sound present RATE: regular rate RHYTHM: regular rhythm HEART SOUNDS: S1 normal heart sound present and S2 normal heart sound present GI: COMMON NORMALS: Normal to inspection, nondistended, normoactive bowel sounds present, Soft to palpation, non-tender and No hepatosplenomegaly present PALPATION: Yes Soft to palpation and Yes No hepatosplenomegaly present Extremity: COMMON NORMALS: no pedal edema Neuro: COMMON NORMALS: patient oriented x3 Psych: COMMON NORMALS: mental status grossly normal Discharge Data Studies Completed and Pending Completed Studies During Hospitalization Category Date Time Status CXRP [XR chest 1V portable [id number]] Stat Exams 11/10/21 05:15 Completed XR chest 1V portable [id number] Stat Exams 11/10/21 02:09 Completed CV. echo complete* [id number] Routine Ultrasound 11/10/21 05:10 Completed Pending at discharge Category Date Time Status MAT CUTTER request for service Routine Exams 11/10/21 07:07 Taken Radiology Impressions Chest X-Ray 11/10/21 05:15 Impression: Negative chest. Laboratory Results WBC 5.9 10^3/uL (4.0-10.0) 11/11/21 04:26 RBC 4.27 10^6/uL (4.1-5.3) 11/11/21 04:26 Hgb 11.1 g/dL (11.5-15.3) L 11/11/21 04:26 Hct 36.5 % (37.0-47.0) L 11/11/21 04:26 MCV 85.5 fl (81-99) 11/11/21 04:26 MCH 26.0 pg (28.0-34.0) L 11/11/21 04:26 MCHC 30.4 g/dL (30.0-36.0) 11/11/21 04:26 RDW 14.8 % (12.1-15.1) 11/11/21 04:26 Plt Count 199 10^3/cmm (130-400) 11/11/21 04:26 MPV 10.5 fL (7.4-10.4) H 11/11/21 04:26 Neut % (Auto) 72.8 % 11/11/21 04:26 Lymph % (Auto) 19.7 % 11/11/21 04:26 [place] % (Auto) 5.8 % 11/11/21 04:26 Eos % (Auto) 1.0 % 11/11/21 04:26 Baso % (Auto) 0.5 % 11/11/21 04:26 Neut # (Auto) 4.30 10^3/uL (1.8-7.7) 11/11/21 04:26 Lymph # (Auto) 1.2 10^3/uL (0.8-4.8) 11/11/21 04:26 [place] # (Auto) 0.3 10^3/uL (0.2-0.9) 11/11/21 04:26 Eos # (Auto) 0.1 10^3/uL (0.0-0.8) 11/11/21 04:26 Baso # (Auto) 0.0 10^3/uL (0.0-0.1) 11/11/21 04:26 Nucleated RBC % (auto) 0 % 11/11/21 04:26 Nucleated RBCs # 0.0 /100WBC 11/11/21 04:26 D-Dimer 0.92 ug/mIFEU (0-0.59) H 11/10/21 05:10 Sodium 138 mmol/L (136-145) 11/11/21 04:26 Potassium 3.8 mmol/L (3.5-5.1) 11/11/21 04:26 Chloride 102 mmol/L (98-107) 11/11/21 04:26 Carbon Dioxide 26 mmol/L (22-29) 11/11/21 04:26 Anion Gap 13.8 (5-19) 11/11/21 04:26 BUN 11 mg/dL (6-20) 11/11/21 04:26 Creatinine 0.7 mg/dL (0.5-0.9) 11/11/21 04:26 GFR Calculation 90.1 mL/min (90-130) 11/11/21 04:26 Glucose 95 mg/dL (65-115) 11/11/21 04:26 Estimat Average Glucose 94 11/11/21 04:26 Hemoglobin A1c 4.9 % (4.0-6.0) 11/11/21 04:26 Calculated Osmolality 285 mOsm/kg (285-295) 11/11/21 04:26 Calcium 9.0 mg/dL (8.5-10.5) 11/11/21 04:26 Total Bilirubin 0.2 mg/dL (0.15-1.2) 11/11/21 04:26 AST 12 U/L (0-32) 11/11/21 04:26 ALT 6 U/L (0-33) 11/11/21 04:26 Alkaline Phosphatase 39 IU/L (35-105) 11/11/21 04:26 Troponin T Baseline 10 ng/L (0-10) 11/10/21 00:45 Troponin T 120 Minute 68.95 ng/L (0-10) H 11/10/21 05:10 Delta Troponin T 58.95 ABS# (0-10) H* 11/10/21 05:10 Troponin T Hi Sens 6Hr 75.90 ng/L (0-10) H 11/10/21 07:11 Troponin T Hi Sens 6Hr Delta 65.90 ng/L (0-12) H* 11/10/21 07:11 Total Protein 6.4 g/dL (6.6-8.7) L 11/11/21 04:26 Albumin 4.0 g/dL (3.5-5.2) 11/11/21 04:26 Globulin 2.4 g/dL (1.3-4.6) 11/11/21 04:26 Triglycerides 112 mg/dL (0-150) 11/11/21 04:26 Cholesterol 179 mg/dL (0-200) 11/11/21 04:26 LDL Cholesterol, Calc 118 mg/dL (50-129) 11/11/21 04:26 HDL Cholesterol 39 mg/dL (60-100) L 11/11/21 04:26 LDL/HDL Ratio 3.03 RATIO (0.00-3.22) 11/11/21 04:26 Cholesterol/HDL Ratio 4.59 mg/dL (0.0-4.40) H 11/11/21 04:26 Vitals Last Vital Signs Temp 97.9 F 11/11/21 07:40 Pulse 81 11/11/21 07:40 Resp 19 H 11/11/21 07:40 BP 158/95 11/11/21 07:40 Pulse Ox 95 11/11/21 07:40 Discharge Plan Discharge Patient Disposition: Home Condition: Stable Prescriptions: New atorvastatin 40 mg Tablet 40 mg PO BEDTIME 30 Days Qty: 30 0RF amlodipine 10 mg Tablet 10 mg PO DAILY 30 Days Qty: 30 0RF nitroglycerin 0.4 mg Tablet, Sublingual 0.4 mg sublingual Q5M PRN (Reason: Chest Pain) 30 Days Qty: 30 0RF metoprolol tartrate 50 mg tablet 50 mg PO BID 30 Days Qty: 60 0RF Continued Vitamin B-1 1 tab PO DAILY 0RF clopidogrel 75 mg tablet 75 mg PO QAM 30 Days Qty: 30 0RF aspirin 81 mg Tablet,Delayed Release (Dr/Ec) 81 mg PO QAM 30 Days Qty: 30 0RF isosorbide mononitrate 60 mg tablet extended release 24 hr 90 mg PO QAM 30 Days Qty: 30 0RF Discontinued atorvastatin 20 mg tablet 20 mg PO QAM 0RF metoprolol tartrate 50 mg tablet 50 mg PO BID 0RF Discharge Orders: Discharge Order (Routine); Ordered 11/11/21 Ordered By: Shabbir Tafoya Referrals: Galdino Carreno M.D [Physician] - 4-7 days Discharge Diet: Cardiac Discharge Activity: Resume usual activity Patient Instructions: Chest Pain Stoplight, Opioid Safety Activity Restrictions/Additional Instructions: -Please stop smoking -Please follow-up with primary care provider in 1 week -Please follow-up with cardiology in 1 week -Please take aspirin, Plavix, statin as prescribed -If you have bloody or black stools please go to the emergency room -Monitor blood pressure Discharge Attestations Time Spent in Discharge Care*: less than 30 min Quality Metrics Clinical Quality Measures [ Acute Myocardial Infaction { Clinical Trial Participant: No; Contraindication to aspirin: None; Aspirin prescribed; Contraindication to statin: None; Statin prescribed; Contraindication to PCI: None; PCI performed;}] Coding Level of Care Code Acute [facility] note Diagnoses Non-ST elevation ME (NSTEMI) I21.4 CAD (coronary artery disease) I25.10 Hypertension I10 Tobacco abuse Z72.0
[2021-11-11 10:59] VITALS: BP 151/84; PULSE 75; RESP 24
== END 2021-11-11 11:29 | disposition home or self-care (01) | DRG 251 ==
LOC: ER 02:51 → CSU 03:13
PROVIDERS: Internal Medicine; Admitting Provider Student in an Organized Health Care Education/Training Program; Emergency Provider Emergency Medicine; Visit Provider Family Medicine
PROC: 02703ZZ Dilation of Coronary Artery, One Artery, Percutaneous Approach (ICD-10-PCS; principal; 2021-11-10 08:00)
PROC: 02703ZZ Dilation of Coronary Artery, One Artery, Percutaneous Approach (ICD-10-PCS; 2021-11-10 08:00)
DX: I21.4 Non-ST elevation (NSTEMI) myocardial infarction (principal); I25.10 Atherosclerotic heart disease of native coronary artery without angina pectoris; Z95.5 Presence of coronary angioplasty implant and graft; F17.210 Nicotine dependence, cigarettes, uncomplicated; I10 Essential (primary) hypertension; Z79.82 Long term (current) use of aspirin; Z79.02 Long term (current) use of antithrombotics/antiplatelets
CPT/HCPCS: 36415; 71045; 80053; 80061; 83036; 84484; 85025; 85378; 92920; 92978; 93005; 93306; 93454; 96372; 99285; C1725; C1753; C1769; C1887; C1894; J1644; J1650; J2250; J3010; J3490; J7030; Q9967

== ENCOUNTER 2023-10-03 10:55 | Outpatient (CLI) | payer OTHER, SELFPAY ==
--- NOTE | 2023-10-03 11:09 | MM_ITS ---
WS: [id number] BILATERAL 3D TOMOSYNTHESIS DIGITAL SCREENING MAMMOGRAPHY WITH CAD CLINICAL INFORMATION: SCREENING HISTORY: Screening mammogram. No current complaints. COMPARISON: Baseline TECHNIQUE: Bilateral CC and MLO views. FINDINGS: Scattered fibroglandular densities bilaterally. No suspicious focal mass, asymmetry, calcifications, or architectural distortion. No evidence of malignancy. IMPRESSION: MM/[place] [id number] BI-RADS: 1-Negative FOLLOW UP: 1 Year Follow-up Recommend return to annual screening mammography.
== END 2023-10-03 10:56 | disposition home or self-care (01) ==
LOC: RAD 10:56
PROVIDERS: Visit Provider Nurse Practitioner
DX: Z12.31 Encounter for screening mammogram for malignant neoplasm of breast (principal); R92.323 Mammographic fibroglandular density, bilateral breasts
CPT/HCPCS: 77063; 77067

== ENCOUNTER → 2024-11-18 14:06 | Outpatient (BNVA) | payer OTHER, SELFPAY | PROVIDERS: Visit Provider Podiatrist Foot & Ankle Surgery | DX: M72.2 Plantar fascial fibromatosis (principal); M76.61 Achilles tendinitis, right leg | CPT/HCPCS: 73630 ==

== ENCOUNTER → 2025-03-18 08:30 | Outpatient (BNVA) | payer MEDICAID, SELFPAY | PROVIDERS: PCP Nurse Practitioner Family; Visit Provider Specialist | DX: G56.03 Carpal tunnel syndrome, bilateral upper limbs (principal); Z01.818 Encounter for other preprocedural examination | CPT/HCPCS: 73110; 80053; 81001; 85025 ==

== ENCOUNTER → 2025-04-08 09:10 | Outpatient (BNVA) | payer MEDICAID, SELFPAY | PROVIDERS: PCP Nurse Practitioner Family; Visit Provider Family Medicine | DX: Z01.818 Encounter for other preprocedural examination (principal) | CPT/HCPCS: 93005 ==

== ENCOUNTER 2025-04-16 09:26 | Day surgery (SDC) | payer MEDICAID, SELFPAY ==
[2025-04-16] VITALS (10 sets, daily range): BP systolic 96–145; BP diastolic 61–85; PULSE 69–84; RESP 12–24; TEMP 36.1–36.6; O2SAT 92–97; BMI 31.0
[2025-04-16] MEDS: acetaminophen 1,000 MG/100 ML PIGGYBACK 400 MG IV (10:18)
--- NOTE | 2025-04-16 11:19 | ANES.PREANE2 ---
Pre-Anesthetic Assessment Height/Weight: Height 5 ft 4 in Weight 181 lb Temp Pulse Resp BP Pulse Ox O2 Del Method 97.0 F L 75 18 145/85 96 Room Air 04/16/25 10:05 04/16/25 10:05 04/16/25 10:05 04/16/25 10:05 04/16/25 10:05 04/16/25 10:05 Preop Diagnosis: Carpal tunnel syndrome Operation Date: 04/16/25 12:30 Proposed Procedures p RIGHT Carpal Tunnel Release(Right) - Tonya Shipley MD Was Beta Sophia taken within 24 hours: Yes Was Clonidine taken within 24 hours: N/A Last intake: Intake Last Liquid Date 04/15/25 Last Liquid Time 20:00 Last Solid Date 04/15/25 Last Solid Time 20:00 Social Tobacco and No alcohol Exam alert, oriented x 3 and regular rate & rhythm Airway Submandibular: within normal limits Cervical ROM: within normal limits Mallampati: Class III Dentition: full Comments: Comments: Large overbite, denies any loose teeth Anesthetic Plan ASA status: 4 Anesthesia: General Other: No prior issues with anesthesia NPO since yesterday evening History of CAD, s/p PCI TIA, on chronic Plavix. Last taken 04/11/2025 Hypertension on amlodipine, losartan and metoprolol preop BP 145/85 Current smoker, COPD GERD, on Protonix Recent labs 03/18/2025 reviewed acceptable for procedure EKG sinus rhythm, echo 2021 showing EF of 55 to 60% Plan for general anesthesia with LMA Medications/Allergies Home Medications ?Medication ?Instructions ?Recorded ?Confirmed ?Last Taken ?Type clopidogrel 75 mg tablet 75 mg PO QAM 30 days #30 tabs 11/11/21 04/15/25 04/11/25 Rx amlodipine 10 mg tablet 10 mg PO DAILY 11/18/24 04/15/25 04/16/25 History gabapentin 100 mg capsule 100 mg PO DAILY 11/18/24 04/15/25 Unknown History bilateral cock up wrist splints #1 ea 03/18/25 03/18/25 Unknown Rx meloxicam 7.5 mg tablet 7.5 mg PO DAILY 03/18/25 04/15/25 Unknown History atorvastatin 80 mg tablet 80 mg PO QDAY 04/08/25 04/15/25 04/15/25 History losartan 25 mg tablet 25 mg PO QDAY 04/08/25 04/15/25 04/15/25 History metoprolol tartrate 50 mg tablet 50 mg PO BID 04/08/25 04/15/25 04/16/25 History pantoprazole 40 mg tablet,delayed 40 mg PO QDAY 04/08/25 04/15/25 04/16/25 History release ranolazine 500 mg tablet,extended 500 mg PO BID 04/08/25 04/15/25 04/16/25 History release,12 hr tiotropium bromide 2.5 2 inh inhalation QDAY 04/08/25 04/15/25 04/16/25 History mcg/actuation mist for inhalation (Spiriva Respimat) Allergies Allergy/AdvReac Type Severity Reaction Status Date / Time No Known Allergies Allergy Verified 04/15/25 13:35 Current Medications Generic Name Dose Route Start Last Admin Trade Name Freq PRN Reason Stop Dose Admin Sodium Chloride 1,000 mls @ 30 mls/hr 04/16/25 10:15 04/16/25 10:18 Sodium Chloride 0.9% IV 04/17/25 10:14 30 mls/hr .Q24H NASRIN Administration PFSH Anesthesia Medical History CAD (coronary artery disease) Social History Smoking and tobacco/nicotine status: current every day tobacco/nicotine user Data Anesthesia Cardiac Studies: Echocardiogram 11/10/21
--- NOTE | 2025-04-16 12:19 | P.HPUD_ITS ---
Surgery/Procedure H&P Update DATE OF PROCEDURE: April 16, 2025 DATE H&P PERFORMED: 04/08/25 H&P UPDATE INFORMATION: I have reviewed H&P completed within last 30 days, I have examined patient prior to procedure, No changes to prior documentation, H&P is in [facility] EMR on date indicated and Risks and benefits of the procedure reviewed PREOP DIAGNOSIS: Right Carpal tunnel syndrome PLANNED PROCEDURE: Operation Date: 04/16/25 12:30 Proposed Procedures p RIGHT Carpal Tunnel Release(Right) - Tonya Shipley MD Related Problem List Diagnoses 1. Carpal tunnel syndrome on right:
[2025-04-16] MEDS: ceFAZolin 2,000 mg SDV 2000 MG IVP (12:28)
[2025-04-16] MEDS: BUPivacaine 0.5% INJ 30 mL XX (12:58)
--- NOTE | 2025-04-16 13:28 | PM.OP ---
Operative Report Date of procedure: April 16, 2025 Pre-op diagnosis: Right carpal tunnel syndrome Post-op diagnosis: Right carpal tunnel syndrome Post-op findings: Significant tightness across the carpal canal with purpleish discoloration of the median nerve Procedure done: Right carpal tunnel release Implants: None Specimens removed/disposition: None Pathology: None Surgeon: Tonya Shipley MD Veterinarian Poultry: None Anesthesia: General (Per LMA, ASA 4) Estimated blood loss (mL): 2 Tourniquet time (min): 19 (At 250 mmHg) IV fluids (mL): 900 Urine output (mL): 0 (No Perez) Complications: None Findings: As noted above Condition: stable Disposition: PACU (Then return to same-day surgery for discharge to home) Brief History: This 50-year-old woman presented with complaints of right hand numbness and tingling as well as pain. Actually, she had symptoms also in the left hand but these were of a lesser degree. Nerve conduction study demonstrated bilateral carpal tunnel findings. After discussion in the office, the patient wished to proceed with operative intervention in the form of carpal tunnel release. She wished to begin with the right hand as it was the more symptomatic hand for her. Risks and complications were discussed with her. Consents were signed in the office and the patient was given the opportunity to ask questions both in the office at the signing of the consents as well as the morning of surgery. Procedure: The patient was brought to the operating theater. The patient was administered general anesthesia per LMA, ASA 4. The tourniquet was elevated to 250 mmHg for a total tourniquet time of 19 minutes. The patient was also given Ancef 2 g preoperatively. The arm was then prepped and draped with DuraPrep in usual fashion with the arm draped free. A surgical pause was performed. At the time, the surgical pause, we confirmed the site and side of surgery. We also confirmed the patient's identity, appropriate and timely administration of preoperative antibiotics and preoperative surgical markings. An incision was then made along the thenar crease. The incision crossed the wrist joint in a curvilinear fashion. Dissection continued through skin and soft tissues using a scalpel. The palmaris longus was identified along with the transverse carpal ligament. Each of these was released carefully to avoid injury to the median nerve. We were able to dissect gently into the carpal canal which was noted to be quite tight with significant compression across the median nerve. The nerve was visualized and was an hourglass shape. There was also purpleish discoloration to the nerve. The canal was subsequently palpated to assure there was no bony encroachment upon the canal. There was a quite thickened fibrous tissue within the canal, and this was opened longitudinally as well. The canal was then palpated distally and proximally to assure that my small finger was passed easily without impingement. Finding this to be so, attention was directed to closure. The wound was irrigated with ropivacaine plain. It was then closed with 3-0 nylon in an interrupted mattress fashion. Sterile dressing was then placed consisting of Dermabond, OpSite, fluffed fluffs, sterile soft roll, and an Jason wrap. The tourniquet was released after 19 minutes. There were no complications. There were no specimens. The procedure was well tolerated. Plan is the patient will be discharged home to follow-up in the office as scheduled. Related Problem List Diagnoses 1. Carpal tunnel syndrome on right:
== END 2025-04-16 14:35 | disposition home or self-care (01) ==
PROVIDERS: PCP Nurse Practitioner Family; Visit Provider Specialist
PROC: (CPT 64721; principal; 2025-04-16 12:20)
DX: G56.01 Carpal tunnel syndrome, right upper limb (principal); I25.10 Atherosclerotic heart disease of native coronary artery without angina pectoris; Z86.73 Personal history of transient ischemic attack (TIA), and cerebral infarction without residual deficits; I10 Essential (primary) hypertension; J44.9 Chronic obstructive pulmonary disease, unspecified; F17.200 Nicotine dependence, unspecified, uncomplicated; K21.9 Gastro-esophageal reflux disease without esophagitis
CPT/HCPCS: 64721; J0131; J0690; J2250; J2704; J3010; J3490; J7030; J9999

== ENCOUNTER 2025-05-19 12:01 | Day surgery (SDC) | payer MEDICAID, SELFPAY ==
[2025-05-19] VITALS (10 sets, daily range): BP systolic 87–115; BP diastolic 58–75; PULSE 71–78; RESP 14–16; TEMP 36.3–36.6; O2SAT 91–96; BMI 31.0
[2025-05-19] MEDS: acetaminophen 1,000 MG/100 ML PIGGYBACK 400 MG IV (13:07)
--- NOTE | 2025-05-19 13:10 | ANES.PREANE2 ---
Pre-Anesthetic Assessment Height/Weight: Height 1.63 m Temp Pulse Resp BP Pulse Ox O2 Del Method 97.4 F L 76 14 115/75 94 Room Air 05/19/25 12:45 05/19/25 12:45 05/19/25 12:45 05/19/25 12:45 05/19/25 12:45 05/19/25 12:45 Operation Date: 05/19/25 13:50 Proposed Procedures p LEFT Carpal Tunnel Release(Left) - Tonya Shipley MD Familial anesthetic complications: none Was Beta Sophia taken within 24 hours: Yes Was Clonidine taken within 24 hours: N/A Last intake: > 8hrs Social Tobacco and No alcohol Exam No alert, No oriented x 3, No clear to auscultation bilaterally and No regular rate & rhythm Airway Mallampati: Class II Dentition: full CV/HEM Coronary Artery Disease (s/p angioplasty) and Hypertension GI Gastroesophageal Reflux Disease Neuropsych TIA Anesthetic Plan ASA status: 3 Anesthesia: General Risk of > 500 ml blood loss (7ml/kg in children): No Medications/Allergies Home Medications ?Medication ?Instructions ?Recorded ?Confirmed ?Last Taken ?Type clopidogrel 75 mg tablet 75 mg PO QAM 30 days #30 tabs 11/11/21 05/18/25 05/14/25 Rx amlodipine 10 mg tablet 10 mg PO DAILY 11/18/24 05/18/25 05/19/25 History gabapentin 100 mg capsule 100 mg PO DAILY 11/18/24 05/18/25 05/18/25 History bilateral cock up wrist splints #1 ea 03/18/25 05/06/25 Unknown Rx meloxicam 7.5 mg tablet 7.5 mg PO DAILY 03/18/25 05/18/25 Unknown History atorvastatin 80 mg tablet 80 mg PO QDAY 04/08/25 05/18/25 05/19/25 History losartan 25 mg tablet 25 mg PO QDAY 04/08/25 05/18/25 05/18/25 History metoprolol tartrate 50 mg tablet 50 mg PO BID 04/08/25 05/18/25 05/19/25 History pantoprazole 40 mg tablet,delayed 40 mg PO QDAY 04/08/25 05/18/25 05/19/25 History release ranolazine 500 mg tablet,extended 500 mg PO BID 04/08/25 05/18/25 05/18/25 History release,12 hr tiotropium bromide 2.5 2 inh inhalation QDAY 04/08/25 05/19/25 05/19/25 History mcg/actuation mist for inhalation (Spiriva Respimat) Allergies Allergy/AdvReac Type Severity Reaction Status Date / Time No Known Allergies Allergy Verified 05/06/25 08:24 Current Medications Generic Name Dose Route Start Last Admin Trade Name Freq PRN Reason Stop Dose Admin Sodium Chloride 1,000 mls @ 30 mls/hr 05/19/25 12:15 05/19/25 12:52 Sodium Chloride 0.9% IV 05/20/25 12:14 30 mls/hr .Q24H NASRIN Administration PFSH Anesthesia Medical History CAD (coronary artery disease) Social History Smoking and tobacco/nicotine status: current every day tobacco/nicotine user Data Anesthesia Cardiac Studies: Echocardiogram 11/10/21
[2025-05-19] MEDS: midazolam 1 mg/mL INJ 2 mL 2 MG IVP (14:09)
--- NOTE | 2025-05-19 15:44 | W.PM.OPSUD ---
Surgery/Procedure H&P Update DATE OF PROCEDURE: May 19, 2025 DATE H&P PERFORMED: 05/06/25 H&P UPDATE INFORMATION: I have reviewed H&P completed within last 30 days, I have examined patient prior to procedure, No changes to prior documentation, H&P is in [facility] EMR on date indicated and Risks and benefits of the procedure reviewed PREOP DIAGNOSIS: Left carpal tunnel syndrome PLANNED PROCEDURE: Operation Date: 05/19/25 13:50 Proposed Procedures p LEFT Carpal Tunnel Release(Left) - Tonya Shipley MD Related Problem List Diagnoses 1. Carpal tunnel syndrome, left:
[2025-05-19] MEDS: ceFAZolin 2,000 mg SDV 2000 MG IVP (15:55)
[2025-05-19] MEDS: BUPivacaine 0.5% INJ 30 mL XX (16:14)
--- NOTE | 2025-05-19 17:40 | ANE.PACU2 ---
Inpatient post-anesthesia follow up: Airway intact: Yes Vital signs: Temperature 97.9 F Pulse Rate 75 Respiratory Rate 16 Blood Pressure 109/69 Pulse Oximetry 92 Oxygen Delivery Me thod Room Air Oxygen Flow Rate 8 Fraction of Inspir ed Oxygen Hydration adequate: Yes Nausea and vomiting: No Pain level: 1 Mental status: Baseline
--- NOTE | 2025-05-19 17:40 | PM.OP ---
Operative Report Date of procedure: May 19, 2025 Pre-op diagnosis: Left carpal tunnel syndrome Post-op diagnosis: Left carpal tunnel syndrome Post-op findings: Significant tightness across carpal canal consistent with carpal tunnel symptoms Procedure done: Left carpal tunnel release Implants: None Specimens removed/disposition: None Pathology: None Surgeon: Tonya Shipley MD Threading Machine Tender: None Anesthesia: General (Per LMA, ASA 3) Estimated blood loss (mL): 1 Tourniquet time (min): 16 (At 250 mmHg) IV fluids (mL): 500 Urine output (mL): 0 (No Perez) Complications: None Findings: Significant compression with fibrous tissue surrounding the median nerve within the carpal canal Condition: stable Disposition: PACU (Then return to same-day surgery for discharge to home) Brief History: This 50-year-old woman presented to the clinic initially with complaints of bilateral hand numbness. Nerve conduction studies demonstrated bilateral carpal tunnel findings. On April 16, 2025, she underwent right carpal tunnel release and has done very well following this. She presented to the clinic wanting to undergo left carpal tunnel release. After discussion, this was scheduled for her. Risks and complications were discussed and consents were signed. Procedure: The patient was brought to the operating theater. The patient was administered general anesthesia per LMA, ASA 3. The tourniquet was elevated to 250 mmHg for a total tourniquet time of 16 minutes. The patient was also given Ancef 2 g preoperatively. The arm was then prepped and draped with DuraPrep in usual fashion with the arm draped free. A surgical pause was performed. At the time, the surgical pause, we confirmed the site and side of surgery. We also confirmed the patient's identity, appropriate and timely administration of preoperative antibiotics and preoperative surgical markings. An incision was then made along the thenar crease. The incision crossed the wrist joint in a curvilinear fashion. Dissection continued through skin and soft tissues using a scalpel. The palmaris longus was identified along with the transverse carpal ligament. Each of these was released carefully to avoid injury to the median nerve. We were able to dissect gently into the carpal canal which was noted to be quite tight with significant compression across the median nerve. The nerve was visualized and was an hourglass shape. The canal was subsequently palpated to assure there was no bony encroachment upon the canal. There was a quite thickened fibrous tissue within the canal, and this was opened longitudinally as well. The canal was then palpated distally and proximally to assure that my small finger was passed easily without impingement. Finding this to be so, attention was directed to closure. The wound was irrigated with ropivacaine plain. It was then closed with 3-0 nylon in an interrupted mattress fashion. Sterile dressing was then placed consisting of Dermabond, OpSite, fluffed fluffs, sterile soft roll, and an Jason wrap. The tourniquet was released after 16 minutes. There were no complications. There were no specimens. The procedure was well tolerated. Plan is the patient will be discharged home to follow-up in the office as scheduled. Related Problem List Diagnoses 1. Carpal tunnel syndrome, left:
== END 2025-05-19 17:40 | disposition home or self-care (01) ==
PROVIDERS: PCP Nurse Practitioner Family; Visit Provider Specialist
PROC: (CPT 64721; principal; 2025-05-19 13:50)
DX: G56.02 Carpal tunnel syndrome, left upper limb (principal); K21.9 Gastro-esophageal reflux disease without esophagitis; I25.10 Atherosclerotic heart disease of native coronary artery without angina pectoris; I10 Essential (primary) hypertension; F17.200 Nicotine dependence, unspecified, uncomplicated
CPT/HCPCS: 64721; J0131; J0690; J2250; J2704; J3010; J3490; J7030; J9999

== ENCOUNTER 2025-06-03 13:37 | Outpatient (CLI) | payer MEDICAID, SELFPAY ==
--- NOTE | 2025-06-03 13:41 | US_ITS ---
WS: [id number] US transvaginal [id number] HISTORY: TERATOMA OF R OVARY COMPARISON: None available. Uterus: 5.4 cm x 3.3 cm x 3.5 cm. Normal size posteriorly tilted uterus. No fibroid or mass. Endometrium: Not visualized. Difficult visualization of the endometrium due to the position of the uterus. Right ovary: 1.3 cm x 1.1 cm x 1.2 cm. Normal size and vascularity, no cystic or solid masses. Left ovary: 3.1 cm x 1.8 cm x 1.7 cm. Normal size and vascularity, no cystic or solid masses. Small follicle. No free fluid in the cul-de-sac. US/US transvaginal [id number] IMPRESSION: 1. Technically difficult and limited pelvic ultrasound. 2. No RIGHT ovarian teratoma identified. 3. Poorly visualized endometrium. 4. If further evaluation is necessary of the RIGHT ovary consider MRI evaluati on, [employer] protocol.
== END 2025-06-03 13:38 | disposition home or self-care (01) ==
LOC: RAD 13:38
PROVIDERS: PCP Nurse Practitioner Family; Visit Provider Nurse Practitioner Family
DX: D27.0 Benign neoplasm of right ovary (principal)
CPT/HCPCS: 76830

== ENCOUNTER → 2025-06-24 10:17 | Outpatient (BNVA) | payer MEDICAID, SELFPAY | PROVIDERS: PCP Nurse Practitioner Family; Visit Provider Obstetrics & Gynecology | DX: D27.0 Benign neoplasm of right ovary (principal); R10.30 Lower abdominal pain, unspecified | CPT/HCPCS: 82105; 83615; 86304 ==

== ENCOUNTER 2025-07-13 07:51 | Outpatient (CLI) | payer MEDICAID, SELFPAY ==
--- NOTE | 2025-07-13 08:00 | MRR_ITS ---
PROCEDURE INFORMATION: Exam: MR Pelvis Without and With Contrast, Uterus and Adnexa Exam date and time: 07/13/2025 8:10 AM Age: 50 years old Clinical indication: Abnormal findings; Mass/lesion; Abdomiinal pain, prior CT done found mass, possible teratoma RT ovary; Additional info: D36.9 - benign neoplasm, unspecified site TECHNIQUE: Imaging protocol: Magnetic resonance imaging of the pelvis without and with contrast. Exam focused on the uterus, cervix, and adnexa. Contrast material: OMNI 350; Contrast volume: 100 ml; Contrast route: INTRAVENOUS (IV); COMPARISON: US transvaginal [id number] 06/03/2025 1:51 PM FINDINGS: Uterus: Normal contour and signal. Normal endometrium and junctional zone. Cervix is unremarkable. Right ovary/adnexa: There is a mixed fat and soft tissue density mass arising from the right ovary measuring 9.1 x 8.9 x 7.8 cm. No substantial enhancement. Left ovary/adnexa: Ovary is normal in size. Normal follicles. Intraperitoneal space: No free fluid. Lymph nodes: No enlarged nodes. Bones/joints: Unremarkable. No suspicious lesions. Soft tissues: Unremarkable. 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
[2025-07-13] MEDS: gadobenate dimeglumine 20 mL vial 16 ML IV (09:05)
== END 2025-07-13 07:52 | disposition home or self-care (01) ==
LOC: RAD 07:51
PROVIDERS: PCP Nurse Practitioner Family; Visit Provider Obstetrics & Gynecology
DX: D27.0 Benign neoplasm of right ovary (principal); R10.9 Unspecified abdominal pain
CPT/HCPCS: 72197; A9577

== ENCOUNTER → 2025-07-23 15:09 | Outpatient (BNVA) | payer MEDICAID, SELFPAY | PROVIDERS: PCP Nurse Practitioner Family; Visit Provider Obstetrics & Gynecology | DX: Z12.4 Encounter for screening for malignant neoplasm of cervix (principal) | CPT/HCPCS: 87624 ==